=== PATIENT | female | born 1990 | race Caucasian/White ===

== ENCOUNTER 2016-07-30 18:07 | Emergency (ER) | payer OTHER ==
--- NOTE | 2016-07-30 21:37 | ED ORDER SUMMARY ---
..... Patient: ARTUR LOGAN OrderSheet [facility] VisitID: [id number] [address] [place] [address] 26y, F Registration Date/Time: 07/30/2016 ORDER SHEET Weight: 86.1 kg (stated) Allergies: Codeine, Sumatriptan GENERAL ORDERS: CBC w Diff Urgent (19:07/30/2016 Jeff LORENZANA) (Ack 19:25 PWeiler ER Tech1) (19:54 RCollier R.N.) CMP Urgent (19:07/30/2016 Jeff LORENZANA) (Ack 19:25 AMBROSIOeipk ER Tech1) (19:54 RCollier R.N.) UA-Culture if indicated Urgent (:07/30/2016 Jeff LORENZANA) (Ack 19:25 Mateus ER Tech1) (20:14 RCollier R.N.) Amylase Urgent (19:07/30/2016 Jeff LORENZANA) (Ack 19:25 AMBROSIOeiler ER Tech1) (19:54 RCollier R.N.) Lipase Urgent (19:07/30/2016 Jeff LORENZANA) (Ack 19:25 AMBROSIOeipk ER Tech1) (19:54 RCollier R.N.) MEDICATION ORDERS: Zofran ODT PO 4 mg (NOW) (18:24 07/30/2016 Marcelino R.N. per protocol) (18:24 JBoardley R.N.) IV FLUIDS: IV NS : initial bolus 1000 mL (1000 mL/hr), then 200 mL/hr for 4h (NOW); Urgent (19:23 07/30/2016 Jeff LORENZANA) (Ack 19:24 RCollier R.N.) (19:54 RCollier R.N.) Dilaudid IV 0.5 mg (HIGH ALERT MEDICATION, NOW) (19:56 07/30/2016 Jeff LORENZANA) (Ack 19:58 RCollier R.N.) (20:14 RCollier R.N.) Dilaudid IV 0.5 mg (NOW) (20:39 07/30/2016 RCollier R.N. verbal order read back to Jeff LORENZANA) (Ack 20:40 Ene R.N.) (20:45 Ene Hollis.Anna) ORDER SHEET NOTES: [Electronically signed by Cassidy Velez R.N. (:31 07/30/2016)] [Electronically signed by Max Easton MD (00:08 08/02/2016)] [Electronically locked/signed by Cassidy Velez R.N. (:31 07/30/2016)]
--- NOTE | 2016-07-30 21:37 | ED ORDER SUMMARY ---
..... Patient: ARTUR LOGAN OrderSheet [facility] VisitID: [id number] [address] [place] [address] 26y, F Registration Date/Time: 07/30/2016 ORDER SHEET Weight: 86.1 kg (stated) Allergies: Codeine, Sumatriptan GENERAL ORDERS: CBC w Diff Urgent (19:07/30/2016 Jeff LORENZANA) (Ack 19:25 PWeiler ER Tech1) (19:54 RCollier R.N.) CMP Urgent (19:07/30/2016 Jeff LORENZANA) (Ack 19:25 AMBROSIOeipk ER Tech1) (19:54 RCollier R.N.) UA-Culture if indicated Urgent (:07/30/2016 Jeff LORENZANA) (Ack 19:25 Mateus ER Tech1) (20:14 RCollier R.N.) Amylase Urgent (19:07/30/2016 Jeff LORENZANA) (Ack 19:25 AMBROSIOeiler ER Tech1) (19:54 RCollier R.N.) Lipase Urgent (19:07/30/2016 Jeff LORENZANA) (Ack 19:25 AMBROSIOeipk ER Tech1) (19:54 RCollier R.N.) MEDICATION ORDERS: Zofran ODT PO 4 mg (NOW) (18:24 07/30/2016 Marcelino R.N. per protocol) (18:24 JBoardley R.N.) IV FLUIDS: IV NS : initial bolus 1000 mL (1000 mL/hr), then 200 mL/hr for 4h (NOW); Urgent (19:23 07/30/2016 Jeff LORENZANA) (Ack 19:24 RCollier R.N.) (19:54 RCollier R.N.) Dilaudid IV 0.5 mg (HIGH ALERT MEDICATION, NOW) (19:56 07/30/2016 Jeff LORENZANA) (Ack 19:58 RCollier R.N.) (20:14 RCollier R.N.) Dilaudid IV 0.5 mg (NOW) (20:39 07/30/2016 RCollier R.N. verbal order read back to Jeff LORENZANA) (Ack 20:40 Ene R.N.) (20:45 Ene Hollis.Anna) ORDER SHEET NOTES: [Electronically signed by Cassidy Velez R.N. (:31 07/30/2016)] [Electronically signed by Max Easton MD (00:08 08/02/2016)] [Electronically locked/signed by Cassidy Velez R.N. (:31 07/30/2016)]
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
--- NOTE | 2016-07-30 21:37 | ED CLINICAL REPORT ---
Clinical Report - Physicians/Mid Levels [facility] [address] [place] [address] 07/30/2016 18:08 Patient: ARTUR LOGAN Time Seen: 19:10. Arrived- By private vehicle. Historian- patient. HISTORY OF PRESENT ILLNESS Is still present. Chief Complaint: HEADACHE. This started today. It was gradual in onset. Onset during light activity. It is described as similar to previous headaches. Located in the region of the right eye and left eye and occipital region and has had neck pain. At its maximum, severity described as 8 / 10. When seen in the E.D., severity described as 7 / 10. Modifying factors: worsened by general movement; relieved by nothing. The patient has had photophobia and nausea. No numbness, weakness or vomiting. (she is 4 days . She is breast-feeding). REVIEW OF SYSTEMS The patient has had chills. No fever, sweats, calf pain, chest pain or cough. No difficulty breathing, pedal edema, palpitations, abdominal pain or diarrhea. No nausea, vomiting or urinary problems. All systems otherwise negative, except as recorded above. SOCIAL HISTORY Never smoker. No alcohol use or drug use. FAMILY HISTORY No significant family medical history. ADDITIONAL NOTES The nursing notes have been reviewed. PHYSICAL EXAM Vital Signs: 07/30/2016 18:16 BP: 126/75. HR: 83. RR: 18. O2 saturation: 100%. Temp: 98 F. Pain level now: 8/10. Have been reviewed. Appearance: Alert. Eyes: Photophobia present. Pupils equal, round and reactive to light. ENT: Pharynx normal. Neck: Normal inspection. Neck supple. No meningeal signs or carotid bruit. CVS: Normal heart rate and rhythm. Heart sounds normal. Respiratory: No respiratory distress. Breath sounds normal. Abdomen: Soft and nontender. No organomegaly. Back: Normal inspection. Skin: Skin warm and dry. Normal skin color. Normal skin turgor. Extremities: Extremities exhibit normal ROM. No calf tenderness. No lower extremity edema. Neuro: Alert. Cranial nerves normal (as tested). No cerebellar findings. No motor deficit. No sensory deficit. LABS, X-RAYS, AND EKG Laboratory Tests: UA-Culture if indicated: (TR: 07/30/2016 20:10) ( [facility] [place] 20:56) Final results Test Result Flag Units (Reference) URINE COLOR YELLOW URINE APPEARANCE CLEAR URINE GLUCOSE NEGATIVE (NEGATIVE) URINE BILIRUBIN NEGATIVE (NEGATIVE) URINE KETONE 1+ (NEGATIVE) URINE SPECIFIC GRAVITY 1.020 (1.010-1.030) URINE PH 6.0 (5.0-8.0) URINE PROTEIN NEGATIVE (NEGATIVE) URINE UROBILINOGEN 0.2 EU/dL (0.2-1.0) URINE NITRITE NEGATIVE (NEGATIVE) URINE BLOOD 3+ (NEGATIVE) URINE LEUK ESTERASE NEGATIVE (NEGATIVE) URINE RBC 25-50 rbc/hpf (0-1) URINE WBC 1-3 wbc/hpf (0-1) URINE EPITHELIAL CELLS 0-1 EPI/hpf (0-5) URINE BACTERIA TRACE (<1+) (NONE SEEN) URINE COMMENT CULT NOT INDICATED URINE CULTURES ARE SET-UP BASED ON THE FOLLOWING CRITERIA:POSITIVE NITRITEPOSITIVE LEUKOCYTE ESTERASEGREATER THAN 10 WHITE BLOOD CELLSMODERATE (2+) OR GREATER BACTERIA CBC w Diff: (TR: 07/30/2016 19:35) ( [facility] [place] 19:58) Final results Test Result Flag Units (Reference) WHITE BLOOD COUNT 7.4 K/uL (4.5-11.5) RED BLOOD COUNT 3.59 L M/uL (4.00-5.20) HEMOGLOBIN 9.9 L gm/dL (12.0-16.0) HEMATOCRIT 30.3 L % (36.0-46.0) MEAN CELL VOLUME 85 fL (80-100) MEAN CORPUSCULAR HGB 28 pg (26-34) MEAN CORPUSCULAR HGB CONC 33 g/dL (31-37) RED CELL DISTRIBUTION WIDTH 17.3 H % (11.6-14.8) PLATELET COUNT 243 K/uL (150-400) NEUTROPHIL % 76.5 H % (50-75) LYMPH % 18.3 L % (25-40) MONO % 3.7 % (3-14) EOSINOPHIL % 1.3 % (0-4) BASOPHIL % 0.2 % (0-2) CMP: (TR: 07/30/2016 19:35) ( MsgRcvd 07/30/2016 20:18) Final results Test Result Flag Units (Reference) GLUCOSE 123 H mg/dL (70-110) BUN 13 mg/dL (7-18) CREATININE 0.8 mg/dL (0.6-1.3) Estimated GFR >60 mL/min Estimated GFR- >60 mL/min Note: Persistent reduction over 3 months in eGFR<60 mL/min/1.73 m2 defines CKD. Patients with eGFR values>=60 mL/min/1.73 m2 may also have CKD if evidence ofpersistent proteinuria. Additional information may be foundat www.kidney.org. SODIUM 139 mmol/L (136-145) POTASSIUM 3.6 mmol/L (3.5-5.1) CHLORIDE 103 mmol/L (98-107) CARBON DIOXIDE 26 mmol/L (21-32) CALCIUM 9.0 mg/dL (8.5-10.1) TOTAL PROTEIN 7.0 g/dL (6.4-8.2) ALBUMIN 2.5 L g/dL (3.3-5.0) BILIRUBIN, TOTAL 0.4 mg/dL (0.0-1.0) ALKALINE PHOSPHATASE 103 U/L (46-116) AST (SGOT) 46 H U/L (15-37) ALT (SGPT) 47 U/L (12-78) LIPASE 136 U/L (73-393) AMYLASE 61 U/L (25-115) . PROGRESS AND PROCEDURES Course of Care: Symptoms better. Vital signs have been reviewed. Physical exam findings are improved. Patient/family counseled. Old medical records reviewed. Disposition: Discharged. Condition: stable. CLINICAL IMPRESSION Acute migraine headache. INSTRUCTIONS No driving or operating machinery while taking medication. Sedative medication was given during your visit. Warnings: Further evaluation is necessary. GENERAL WARNINGS: Return or contact your physician immediately if your condition worsens or changes unexpectedly, if not improving as expected, or if other problems arise. Your Current Medications: CONTINUE TAKING THE FOLLOWING MEDICATIONS: OxyCODONE HCl Oral : 5 mg 4x a day, prn, post , 1-2 tabs. OTC Medications: Motrin (available over the counter): take according to label instructions. Follow-up: Follow up with your doctor tomorrow. Understanding of the discharge instructions verbalized by patient. (Electronically signed by Max Easton MD 08/02/2016 0:08)
--- NOTE | 2016-08-02 00:09 | ED MAR SUMMARY ---
..... Medication Administration Record [facility] [address] [place] [address] Patient: ARTUR LOGAN Visit ID: [id number] 26y, F Weight: 86.1 kg Height/Length: 62 in BMI: 34.8 ALLERGIES: Sumatriptan, Codeine Given 18:24 07/30/2016 Holland Macias R.N. Medication Administered: ZOFRAN ODT [PO] (ONDANSETRON), Dose: 4 mg PO. Medication Ordered: Zofran ODT PO 4 mg (NOW). Start 19:28 07/30/2016 Cassidy Velez R.N., Stop 20:30 07/30/2016 Cassidy Velez R.N. Medication Administered: IV NS (SALINE), Dose: IV Fluids over 1 hour(s), Rate: 1000 mL/hr, Dispensed: 1000 mL bag, Site: #1 right AC. Medication Ordered: IV NS : initial bolus 1000 mL (1000 mL/hr), then 200 mL/hr for 4h (NOW); Urgent. Given 20:13 07/30/2016 Cassidy Velez R.N. Medication Administered: DILAUDID [IVP] (HYDROMORPHONE HCL PF), Dose: 0.5 mg IVP over 1 minute(s), Site: #1 right AC. Medication Ordered: Dilaudid IV 0.5 mg (HIGH ALERT MEDICATION, NOW). Given 20:40 07/30/2016 Cassidy Velez R.N. Medication Administered: DILAUDID [IVP] (HYDROMORPHONE HCL PF), Dose: 0.5 mg IVP over 30 second(s), Site: #1 right AC. Medication Ordered: Dilaudid IV 0.5 mg (NOW).
--- NOTE | 2016-08-02 00:09 | ED MAR SUMMARY ---
..... Medication Administration Record [facility] [address] [place] [address] Patient: ARTUR LOGAN Visit ID: [id number] 26y, F Weight: 86.1 kg Height/Length: 62 in BMI: 34.8 ALLERGIES: Sumatriptan, Codeine Given 18:24 07/30/2016 Holland Macias R.N. Medication Administered: ZOFRAN ODT [PO] (ONDANSETRON), Dose: 4 mg PO. Medication Ordered: Zofran ODT PO 4 mg (NOW). Start 19:28 07/30/2016 Cassidy Velez R.N., Stop 20:30 07/30/2016 Cassidy Velez R.N. Medication Administered: IV NS (SALINE), Dose: IV Fluids over 1 hour(s), Rate: 1000 mL/hr, Dispensed: 1000 mL bag, Site: #1 right AC. Medication Ordered: IV NS : initial bolus 1000 mL (1000 mL/hr), then 200 mL/hr for 4h (NOW); Urgent. Given 20:13 07/30/2016 Cassidy Velez R.N. Medication Administered: DILAUDID [IVP] (HYDROMORPHONE HCL PF), Dose: 0.5 mg IVP over 1 minute(s), Site: #1 right AC. Medication Ordered: Dilaudid IV 0.5 mg (HIGH ALERT MEDICATION, NOW). Given 20:40 07/30/2016 Cassidy Velez R.N. Medication Administered: DILAUDID [IVP] (HYDROMORPHONE HCL PF), Dose: 0.5 mg IVP over 30 second(s), Site: #1 right AC. Medication Ordered: Dilaudid IV 0.5 mg (NOW).
--- NOTE | 2016-08-02 00:09 | ED MED RECONCILIATION SUMMARY ---
Patient: ARTUR LOGAN Medication Reconciliation Report [facility] VisitID: [id number] [address] [place] [address] 26y, F Registration Date/Time: 07/30/2016 Weight: 86.1 kg Height/Length: 62 in. BMI: 34.8 ALLERGIES: Codeine, Sumatriptan The patient's Home Medications are listed below: CONTINUE TAKING THE FOLLOWING MEDICATIONS: OxyCODONE HCl Oral 5 mg, 4x a day, post , 1-2 tabs The source(s) of the original Home Medication information: patient's family member patient The following Medications were given to the patient in the Emergency Department: Zofran ODT [PO] PO 4 mg, administered: 07/30/2016 6:24:00 PM IV NS IV Fluids bolus 0, then 1000 mL/hr, administered: 07/30/2016 7:28:00 PM Dilaudid [IVP] IVP 0.5 mg, administered: 07/30/2016 8:13:00 PM Dilaudid [IVP] IVP 0.5 mg, administered: 07/30/2016 8:40:00 PM The following Medications were prescribed to the patient: Motrin (available over the counter): take according to label instructions. -- Max Easton MD
--- NOTE | 2016-08-02 00:09 | ED DISCHARGE INSTRUCTIONS ---
Patient: ARTUR LOGAN General Instructions [facility] VisitID: [id number] [address] [place] [address] 26y, F Registration Date/Time: 07/30/2016 Acute migraine headache. INSTRUCTIONS No driving or operating machinery while taking medication. Sedative medication was given during your visit. Warnings: Further evaluation is necessary. GENERAL WARNINGS: Return or contact your physician immediately if your condition worsens or changes unexpectedly, if not improving as expected, or if other problems arise. Your Current Medications: CONTINUE TAKING THE FOLLOWING MEDICATIONS: OxyCODONE HCl Oral : 5 mg 4x a day, prn, post , 1-2 tabs. OTC Medications: Motrin (available over the counter): take according to label instructions. Follow-up: Follow up with your doctor tomorrow. Understanding of the discharge instructions verbalized by patient. ADDITIONAL INFORMATION Migraine Headache Migraine headaches are related to changes in blood flow to the brain. This causes throbbing or constant pain on one or both sides of the head. The pain may last from a few hours to several days. There is usually nausea, vomiting, sensitivity to light and sound, and blurred vision. A migraine attack may be triggered by emotional stress, hormone changes during the menstrual cycle, oral contraceptives, alcohol use, certain foods containing tyramine, eye strain, weather changes, missing meals, or too little or too much sleep. Home Care For This Headache: 1) If you were given pain medicine for this headache, do not drive yourself home . Arrange for a ride, instead. When you get home, try to sleep. You should feel much better when you wake up. 2) Migraine headaches may improve with an ice pack on the forehead or at the base of the skull. Heat to the back of your neck may relieve any neck spasm. 3) Drink only clear liquids or eat a very light diet to avoid nausea/vomiting until symptoms improve. Preventing Future Headaches: 1) Pay attention to those factors that seem to trigger your headache. Try to avoid them when you can. If you have frequent headaches, it is useful to keep a diary of what you were doing, feeling or eating in the hours before each attack. Show this to your doctor to help find the cause of your headaches. a) If you feel that stress is a factor in your headaches, look at the sources of stress in your life. Find ways to release the build-up of those stresses by using regular exercise, relaxation methods (yoga, meditation), bio-feedback or simply taking time-out for yourself. For more information about this, consult your doctor or go to a local bookstore and review books and tapes on this subject. b) Tyramine is a substance present in the following foods : chocolate, yogurt, all cheeses except cottage cheese and cream cheese. smoked or pickled fish and meat (including quiroz, caviar, bologna, pepperoni, salami), liver, avocados, bananas, figs, raisins, and red wine. Be aware that these foods may trigger a migraine in some persons. Try taking these foods out of your diet for 1-2 months to see if this reduces headache frequency. Treating Future Attacks: 1) At the first sign of a headache, take time out if possible. Find a quiet, dark, comfortable place to sit or lie down. Let yourself relax or sleep. 2) An ice pack on the forehead or area of greatest pain may help. If you are having muscle spasm and tightness of the neck, a heating pad and massage to this area may be helpful. 3) If you have been prescribed a medicine to stop a migraine headache, use this at the very first warning sign of the headache (aura or initial pain) for best results. Follow Up with your doctor if the headache is not better within the next 24 hours. If you have frequent headaches you should discuss a treatment plan with your primary care doctor. Ask if you can have medicine to take at home the next time you get a bad headache. Poorly controlled chronic headaches may require a referral to a neurologist (headache specialist). Get Prompt Medical Attention if any of the following occur: Your head pain gets worse, or does not improve within 24 hours Repeated vomiting (cant keep liquids down) Sinus or ear or throat pain (not already reported) Fever of 100.4 F (38 C) or higher, or as directed by your healthcare provider Stiff neck Extreme drowsiness, confusion or fainting Dizziness, vertigo (dizziness with spinning sensation) Weakness of an arm or leg or one side of the face Difficulty with speech or vision Ibuprofen Oral tablet What is this medicine? IBUPROFEN (eye BYOO proe fen) is a non-steroidal anti-inflammatory drug (NSAID). It is used for dental pain, fever, headaches or migraines, osteoarthritis, rheumatoid arthritis, or painful monthly periods. It can also relieve minor aches and pains caused by a cold, flu, or sore throat. How should I use this medicine? Take this medicine by mouth with a glass of water. Follow the directions on the prescription label. Take this medicine with food if your stomach gets upset. Try to not lie down for at least 10 minutes after you take the medicine. Take your medicine at regular intervals. Do not take your medicine more often than directed. A special MedGuide will be given to you by the pharmacist with each prescription and refill. Be sure to read this information carefully each time. Talk to your cylinder inspector regarding the use of this medicine in children. Special care may be needed. What side effects may I notice from receiving this medicine? Side effects that you should report to your doctor or health career and guidance counselor as soon as possible: allergic reactions like skin rash, itching or hives, swelling of the face, lips, or tongue black or bloody stools, blood in the urine or in vomit breathing problems changes in vision chest pain general ill feeling or flu-like symptoms nausea or vomiting redness, blistering, peeling or loosening of the skin, including inside the mouth slurred speech or weakness on one side of the body stomach pain unexplained weight gain or swelling unusually weak or tired yellowing of eyes or skin Side effects that usually do not require medical attention (report to your doctor or health career and guidance counselor if they continue or are bothersome): constipation or diarrhea dizziness gas or heartburn stomach upset What may interact with this medicine? Do not take this medicine with any of the following medications: cidofovir ketorolac methotrexate pemetrexed This medicine may also interact with the following medications: alcohol aspirin diuretics lithium other drugs for inflammation like prednisone warfarin What if I miss a dose? If you miss a dose, take it as soon as you can. If it is almost time for your next dose, take only that dose. Do not take double or extra doses. Where should I keep my medicine? Keep out of the reach of children. Store at room temperature between 15 and 30 degrees C (59 and 86 degrees F). Keep container tightly closed. Throw away any unused medicine after the expiration date. What should I tell my health care provider before I take this medicine? They need to know if you have any of these conditions: asthma cigarette smoker drink more than 3 alcohol containing drinks a day heart disease or circulation problems such as heart failure or leg edema (fluid retention) high blood pressure kidney disease liver disease stomach bleeding or ulcers an unusual or allergic reaction to ibuprofen, aspirin, other NSAIDS, other medicines, foods, dyes, or preservatives or trying to get breast-feeding What should I watch for while using this medicine? Tell your doctor or healthcare professional if your symptoms do not start to get better or if they get worse. This medicine does not prevent heart attack or stroke. In fact, this medicine may increase the chance of a heart attack or stroke. The chance may increase with longer use of this medicine and in people who have heart disease. If you take aspirin to prevent heart attack or stroke, talk with your doctor or health career and guidance counselor. Do not take other medicines that contain aspirin, ibuprofen, or naproxen with this medicine. Side effects such as stomach upset, nausea, or ulcers may be more likely to occur. Many medicines available without a prescription should not be taken with this medicine. This medicine can cause ulcers and bleeding in the stomach and intestines at any time during treatment. Ulcers and bleeding can happen without warning symptoms and can cause . To reduce your risk, do not smoke cigarettes or drink alcohol while you are taking this medicine. You may get drowsy or dizzy. Do not drive, use machinery, or do anything that needs mental alertness until you know how this medicine affects you. Do not stand or sit up quickly, especially if you are an older patient. This reduces the risk of dizzy or fainting spells. This medicine can cause you to bleed more easily. Try to avoid damage to your teeth and gums when you brush or floss your teeth. You have been given the following additional information: Headache, Migraine (Classical) Ibuprofen Oral tablet No driving or operating machinery while taking medication. Sedative medication was given during your visit. (Electronically signed by Max Easton MD 08/02/2016 0:08)
--- NOTE | 2016-08-02 00:09 | ED MED RECONCILIATION SUMMARY ---
Patient: ARTUR LOGAN Medication Reconciliation Report [facility] VisitID: [id number] [address] [place] [address] 26y, F Registration Date/Time: 07/30/2016 Weight: 86.1 kg Height/Length: 62 in. BMI: 34.8 ALLERGIES: Codeine, Sumatriptan The patient's Home Medications are listed below: CONTINUE TAKING THE FOLLOWING MEDICATIONS: OxyCODONE HCl Oral 5 mg, 4x a day, post , 1-2 tabs The source(s) of the original Home Medication information: patient's family member patient The following Medications were given to the patient in the Emergency Department: Zofran ODT [PO] PO 4 mg, administered: 07/30/2016 6:24:00 PM IV NS IV Fluids bolus 0, then 1000 mL/hr, administered: 07/30/2016 7:28:00 PM Dilaudid [IVP] IVP 0.5 mg, administered: 07/30/2016 8:13:00 PM Dilaudid [IVP] IVP 0.5 mg, administered: 07/30/2016 8:40:00 PM The following Medications were prescribed to the patient: Motrin (available over the counter): take according to label instructions. -- Max Easton MD
== END 2016-07-30 22:05 | disposition home or self-care (01) ==
LOC: ED SRH 18:07
DX: G43.909 Migraine, unspecified, not intractable, without status migrainosus (principal)
CPT/HCPCS: 90004; 90100; 92235; 92530; 95059